=== PATIENT | male | born 1990 | race Caucasian/White ===

== ENCOUNTER 2016-10-21 18:36 | Emergency (ER) | payer OTHER ==
[~2016-10-21] VITALS: Ht 167.6 cm; Wt 113.4 kg
--- NOTE | ~2016-10-21 | EKG ---
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1990 Requested By: Rachele Dubois Order Number: [id number] MD: Preston Rivera Measurements Intervals [place] Rate: 82 P: 62 TX: 155 QRS: 42 QRSD: 100 T: 13 QT: 413 QTc: 483 Interpretive Statements Sinus rhythm No significant abnormality Small inferior q waves Compared to ECG 04/23/2016 18:58:58 No significant change was found Electronically Signed On 10-22-2016 8:35:41 CDT by Preston Rivera [email or web address] <ELECTRONICALLY SIGNED> By: Preston Rivera MD, [facility] 10/22/16 0835 2104 2104 Preston Rivera MD, FACC /EPI
[2016-10-21 21:02] LABS: ABSOLUTE NEUTROPHILS 7.8 thou/uL (1.4-8.2); BASOPHILS 0.9 % (0.0-2.0); EOSINOPHILS 0.8 % (0.0-3.0); HEMATOCRIT 44.1 % (42.0-52.0); HEMOGLOBIN 15.5 gm/dL (14.0-18.0); LYMPHOCYTES 24.4 % (24.0-44.0); MCH 31.9 pg (26.0-34.0); MONOCYTES 6.5 % (1.0-8.0); PLATELET COUNT 231 thou/uL (150-400); POLYS 67.4 % (36.0-66.0); RBC 4.85 mil/uL (4.50-6.00); RDW 14.5 % (10.5-14.5); WBC 11.6 thou/uL (4.0-11.0)
[2016-10-21 21:05] LABS: MANUAL DIFF NO
[2016-10-21 21:12] LABS: ANION GAP 13 mmol/L (7-16); BUN 14 mg/dL (7-18); CALCIUM 9.9 mg/dL (8.5-10.1); CHLORIDE 101 mmol/L (98-107); CO2 25 mmol/L (21-32); GLUCOSE 88 mg/dL (74-106); POTASSIUM 3.2 mmol/L (3.5-5.1); SODIUM 139 mmol/L (136-145)
[2016-10-21 21:21] LABS: ALBUMIN 4.4 g/dL (3.4-5.0); ALKALINE PHOSPHATASE 98 U/L (46-116); SGOT 103 U/L (15-37); SGPT 185 U/L (30-65); TOTAL PROTEIN 8.1 g/dL (6.4-8.2); TROPONIN-I < 0.04 ng/mL (<0.04-0.07)
[2016-10-21 22:06] LABS: AMP/METHAMP Negative (Negative); BARBITURATES Negative (Negative); BENZODIAZEPINES Negative (Negative); COCAINE POSITIVE (Negative); METHADONE Negative (Negative); OPIATES Negative (Negative); PCP Negative (Negative); THC Negative (Negative)
[2016-10-21 22:32] VITALS: BP 171/84
== END 2016-10-21 22:33 | disposition home or self-care (01) ==
LOC: ER 18:36
PROVIDERS: Physician Assistant
DX: F14.10 Cocaine abuse, uncomplicated (principal); R07.89 Other chest pain; R06.00 Dyspnea, unspecified; F10.99 Alcohol use, unspecified with unspecified alcohol-induced disorder; Z87.891 Personal history of nicotine dependence

== ENCOUNTER 2018-08-14 13:36 | Emergency (ER) | payer OTHER ==
[~2018-08-14] VITALS: Ht 167.6 cm; Wt 117.9 kg
--- NOTE | 2018-08-14 15:04 | EKG ---
[address] [address] [facility] [place] [address] ELECTROCARDIOGRAM REPORT Name: NEW RANGEL Room #: REG Viridiana#: [id number] ������������������ Admission: 08/14/18 ������������������ Attend Phys: Discharge: ������������������ Date of : [birth year] Report #: [id number] ����������������������������������������������������������������� [id number] THIS REPORT FOR: //name// 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1990 Requested By: Rachele Dubois Order Number: [id number] MD: Toni Suresh Measurements Intervals [place] Rate: 96 P: 56 MD: 145 QRS: 39 QRSD: 96 T: 12 QT: 359 QTc: 454 Interpretive Statements Sinus rhythm Nonspecific ST segment abnormalities Compared to ECG 10/21/2016 21:04:23 No significant change Electronically Signed On 08-14-2018 15:04:14 CDT by Toni Suresh [email or web address] ��������������������������������������������� <ELECTRONICALLY SIGNED> ���������������������������������������� By: Toni Suresh MD ��������������������������������������������� 08/14/18 1504 1421 1421 Toni Suresh MD /EPI
[2018-08-14] MEDS ORDERED: NAPROSYN500 MG PO (15:42)
[2018-08-14 15:58] VITALS: BP 166/103
== END 2018-08-14 15:58 | disposition home or self-care (01) ==
LOC: ER 13:36
DX: S93.501A Unspecified sprain of right great toe, initial encounter (principal); R07.89 Other chest pain; I10 Essential (primary) hypertension; J45.909 Unspecified asthma, uncomplicated; E66.9 Obesity, unspecified; Z68.41 Body mass index [BMI] 40.0-44.9, adult; Z87.891 Personal history of nicotine dependence; Z83.42 Family history of familial hypercholesterolemia; W22.8XXA Striking against or struck by other objects, initial encounter; Y93.89 Activity, other specified; Y92.098 Other place in other non-institutional residence as the place of occurrence of the external cause; Y99.8 Other external cause status